=== PATIENT | male | born 1965 | race African-American/Black ===

== ENCOUNTER 2017-07-01 06:53 | Outpatient (CLI) | payer OTHER ==
[~2017-07-01] VITALS: Ht 170.2 cm; Wt 104.0 kg
[2017-07-01] MEDS ORDERED: ZANTAC 150MG T150 MG PO (07:20)
[2017-07-01] MEDS ORDERED: MICARDIS HCT 251 TAB PO (07:20)
[2017-07-01 07:21] VITALS: BP 134/91; PULSE 73; TEMP 98.3
[2017-07-01] MEDS ORDERED: TOPROL XL 25MG25 MG PO (07:21)
[2017-07-01 09:30] VITALS: BP 142/97
[2017-07-01 09:45] VITALS: BP 148/98; PULSE 73
[2017-07-01 10:00] VITALS: BP 131/76; PULSE 69
[2017-07-01 10:15] VITALS: BP 130/88; PULSE 72
[2017-07-01 10:31] LABS: BASO # 0.1 (0.0-0.2); EOS # 1.6 (0.0-0.7); EOS % 23.8 % (0-4.0); GRAN # 2.3 (1.4-6.5); GRAN % 34.3 % (42.2-75.2); HEMATOCRIT 39.7 % (42.0-52.0); HEMOGLOBIN 13.2 g/dl (13.5-18.0); LYMPH # 2.1 (1.2-3.4); LYMPH % 30.5 % (20.0-51.0); MEAN CELL VOLUME 98 fl (80.0-100.0); MEAN CORPUSCULAR HEMOGLOBIN 32 pg (27.0-31.0); MEAN CORPUSCULAR HGB CONC 33 g/dl (33.0-37.0); MEAN PLATELET VOLUME 8.6 fl (7.4-10.4); MONO # 0.7 (0.1-0.6); MONO % 9.7 % (1.7-9.3); PLATELET COUNT 309 K/mm3 (130-400); RED BLOOD COUNT 4.07 M/mm3 (4.20-5.60); REDCELL DISTRIBUTION WIDTH-CV 14.4 % (11.5-14.5)
[2017-07-01 13:15] VITALS: BP 124/68; PULSE 78
== END 2017-07-01 10:40 | disposition home or self-care (01) ==
LOC: SDCO 06:53
PROVIDERS: Pathology Anatomic Pathology & Clinical Pathology
DX: D72.1 Eosinophilia (principal); I10 Essential (primary) hypertension; E78.5 Hyperlipidemia, unspecified; G47.33 Obstructive sleep apnea (adult) (pediatric); F17.290 Nicotine dependence, other tobacco product, uncomplicated; Z80.0 Family history of malignant neoplasm of digestive organs
CPT/HCPCS: J2405; J2704; J3010; J7120

== ENCOUNTER → 2017-11-06 | Outpatient (CLI) | payer OTHER ==
[~2017-11-06] MED LIST: MICARDIS HCT 251 TAB PO; TOPROL XL 25MG25 MG PO; ZANTAC 150MG T150 MG PO
== END ==
LOC: COL.VAS 11-04 10:00
DX: D72.1 Eosinophilia (principal)

== ENCOUNTER 2019-11-08 07:20 | Outpatient (CLI) | payer OTHER ==
[~2019-11-08] VITALS: Ht 170.2 cm; Wt 102.7 kg
[2019-11-08 07:40] VITALS: BP 126/78; PULSE 68; TEMP 98.4
[2019-11-08 10:13] VITALS: BP 100/66; PULSE 65
--- NOTE | 2019-11-08 10:13 | NUR ---
Pt arrived back to room via cart with [employer]. Received report at bedside from RN. Pt denies pain or nausea at this time and VSS and WNL. Pt alert, awake, and oriented. , Murial, at bedside. Reviewed discharge goals with pt and , and they agree with plan and express understanding. Coffee brought to pt per request. Call light within reach, and pt expresses understanding of knowing how to use.
[2019-11-08 10:25] VITALS: BP 107/74; PULSE 68
--- NOTE | 2019-11-08 10:25 | NUR ---
Pt lying comfortably in bed with HOB up. Pt denies pain or nausea. VSS and WNL. Call light within reach. Pt able to drink coffee without issue.
[2019-11-08 10:38] LABS: BASO # 0.1 (0.0-0.2); BASO % 0.8 % (0.0-2.0); EOS % 37.1 % (0-4.0); GRAN # 2.4 (1.4-6.5); GRAN % 29.4 % (42.2-75.2); HEMATOCRIT 41.2 % (42.0-52.0); HEMOGLOBIN 14.1 g/dl (13.5-18.0); LYMPH # 2.1 (1.2-3.4); LYMPH % 25.8 % (20.0-51.0); MEAN CELL VOLUME 102 fl (80.0-100.0); MEAN CORPUSCULAR HEMOGLOBIN 35 pg (27.0-31.0); MEAN CORPUSCULAR HGB CONC 34 g/dl (33.0-37.0); MEAN PLATELET VOLUME 9.6 fl (7.4-10.4); MONO # 0.5 (0.1-0.6); MONO % 6.5 % (1.7-9.3); PLATELET COUNT 260 K/mm3 (130-400); RED BLOOD COUNT 4.04 M/mm3 (4.20-5.60); REDCELL DISTRIBUTION WIDTH-CV 14.6 % (11.5-14.5)
[2019-11-08 10:45] VITALS: BP 118/63; PULSE 54
--- NOTE | 2019-11-08 10:45 | NUR ---
Pt sitting comfortably in bed with HOB up. Pt states that he is ready to go home. VSS and WNL, and he is awake, alert, oriented. Dressings CDI, and no pain or swelling at the sites. Call light at bedside.
[2019-11-08 11:00] VITALS: BP 134/75; PULSE 62
--- NOTE | 2019-11-08 11:00 | NUR ---
Pt meets criteria for discharge and states that he is ready to go home. He is awake, alert, and oriented and denies pain or nausea. Both sites are CDI. Reviewed with pt and the following: discharge information including signs of infections, what to do if bleeding occurs, when to call the dr, when to shower. Copies of discharge information and educational packet given to pt and . They had no further concerns or questions at this time but was aware of how to get ahold of someone if they arose. VSS and WNL upon discharge
== END 2019-11-08 11:15 | disposition home or self-care (01) ==
LOC: SDCO 07:20 → EDSTATUS 09:00 → SDCO 09:00
PROVIDERS: Pathology Anatomic Pathology & Clinical Pathology
DX: D72.1 Eosinophilia (principal); I10 Essential (primary) hypertension; G47.33 Obstructive sleep apnea (adult) (pediatric); K21.9 Gastro-esophageal reflux disease without esophagitis; F17.290 Nicotine dependence, other tobacco product, uncomplicated
CPT/HCPCS: J2250; J2704; J3010; J7120

== ENCOUNTER → 2019-11-15 | Outpatient (CLI) | payer OTHER | LOC: COL.PUL 09:43 | DX: D72.1 Eosinophilia (principal); F17.210 Nicotine dependence, cigarettes, uncomplicated ==

== ENCOUNTER → 2019-11-17 | Outpatient (CLI) | payer OTHER | LOC: COL.VAS 09:00 | DX: Z51.11 Encounter for antineoplastic chemotherapy (principal); Z01.810 Encounter for preprocedural cardiovascular examination; D72.1 Eosinophilia; J98.4 Other disorders of lung; N28.89 Other specified disorders of kidney and ureter; N40.0 Benign prostatic hyperplasia without lower urinary tract symptoms | CPT/HCPCS: Q9967 ==

== ENCOUNTER → 2019-12-07 | Outpatient (CLI) | payer OTHER | LOC: COL.RAD 13:52 | DX: M43.16 Spondylolisthesis, lumbar region (principal); M47.816 Spondylosis without myelopathy or radiculopathy, lumbar region; M54.18 Radiculopathy, sacral and sacrococcygeal region; M89.8X8 Other specified disorders of bone, other site; G90.09 Other idiopathic peripheral autonomic neuropathy ==

== ENCOUNTER → 2020-10-04 | Outpatient (CLI) | payer OTHER | LOC: COL.RAD 13:13 | DX: M19.072 Primary osteoarthritis, left ankle and foot (principal) ==